=== PATIENT | female | born 1995 | race Caucasian/White ===

== ENCOUNTER → 2017-02-03 | Outpatient (CLI) | payer BC ==
[~2017-02-03] MED LIST: BCPILLS PO
--- NOTE | 2017-02-03 15:12 | DIAGNOSTIC IMAGING REPORT ---
MRI left knee LEFT LOWER EXT JOINT WITHOUT CLINICAL HISTORY: LEFT KNEE PAIN TECHNIQUE: MRI multi axial acquisition COMPARISON STUDY: None FINDINGS: Signal characteristics of the osseous structures are unremarkable. There is no evidence for bone marrow replacing process. Anterior and posterior cruciate ligaments are intact. The collateral ligaments are unremarkable. Sprain of the lateral patellar retinaculum. Medial retinaculum is intact. Medial and lateral menisci are unremarkable in overall signal character and configuration. IMPRESSION: 1. Sprain lateral patellar retinaculum. 2. Study is otherwise negative Electronically signed by: Koby Zamora M.D. 02/03/2017 3:11 PM Dictated Date/Time: 02/03/2017 3:00 PM
== END | disposition home or self-care (01) ==
LOC: C.MRI 13:29
PROVIDERS: ATTEND Physical Medicine & Rehabilitation Sports Medicine
DX: M25.562 Pain in left knee (principal)